=== PATIENT | male | born 1975 | race American Indian/Alaskan Native ===

== ENCOUNTER 2016-05-29 16:15 | Emergency (ER) | payer OTHER ==
[2016-05-29 18:16] LABS: Basophils % (Auto) 0.6 % (0.0-1.8); Eosinophils % (Auto) 2.1 % (0.0-4.3); Hematocrit 47.4 % (35.5-45.6); Hemoglobin 15.6 gm/dl (11.8-15.2); Mean Corpuscular HGB Conc 33 % (32-34); Mean Corpuscular Hemoglobin 30 pg (28-32); Mean Corpuscular Volume 91 fl (84-94); Platelet Count 257 K/mm3 (140-440); Red Blood Count 5.22 M/mm3 (3.65-5.03); Red Cell Distribution Width 13.8 % (13.2-15.2); White Blood Count 9.1 K/mm3 (4.5-11.0)
[2016-05-29 18:20] LABS: Anion Gap 19 mmol/L; Blood Urea Nitrogen 12 mg/dL (9-20); Calcium 9.1 mg/dL (8.4-10.2); Carbon Dioxide 28 mmol/L (22-30); Glucose 99 mg/dL (75-100); Potassium 3.5 mmol/L (3.6-5.0); Sodium 140 mmol/L (137-145)
[2016-05-29] MEDS ORDERED: VALIUM IV ONE (18:44)
[2016-05-29] MEDS ORDERED: REGLAN IV ONE (18:44)
[2016-05-29] MEDS ORDERED: NORMODYNE IV ONE ×2 (18:44→19:52)
[2016-05-29] MEDS ORDERED: BENADRYL IV ONE (18:44)
[2016-05-29] MEDS ORDERED: APRESOLINE IV ONE (18:46)
--- NOTE | 2016-05-29 18:48 | Emergency Department Report ---
HPI - General Chief Complaint: High BP Time Seen by Provider: 05/29/16 18:08 - HPI HPI: The patient is a 40-year-old male with a significant history of uncontrolled hypertension, who presents for evaluation of headache. The patient reports headache for the past 3 days, achy in quality, left frontal in location, 6/10 in severity, exacerbated with bright lights or loud sounds. He states that he is not the worse headache of his life. He states that he has experienced similar headaches in the past with elevations in his blood pressure. The patient denies fever, head injury, neck pain, neck stiffness, vision or hearing changes, smell or taste changes, paresthesias, facial drooping, slurred speech, seizure-like activity, urine or bowel incontinence or retention, or other focal neurological deficit. ED Past Medical Hx - Past Medical History Hx Hypertension: Yes (2012) Hx GERD: Yes Hx Liver Disease: No Hx Renal Disease: No Hx Sickle Cell Disease: No Hx Seizures: No - Surgical History Additional Surgical History: Hastings's tendon repair (09/21) - Social History Smoking Status: Unknown if ever smoked Substance Use Type: None - Medications Home Medications: Home Medications Medication Instructions Recorded Confirmed Last Taken Type Amlodipine Besylate/Benazepril 1 cap PO DAILY #30 capsule 08/30/13 10/02/13 07:20 Rx [Amlodipine-Benazepril 10-20 mg] Hydrochlorothiazide [Hctz] 25 mg PO QDAY #30 tablet 08/30/13 10/02/13 10/02/13 07:20 Rx HYDROcodone/APAP 7.5-325 [[place] 1 each PO Q6HR PRN #25 tablet 09/29/13 10/02/13 09/30/13 Rx 7.5/325 mg] Ibuprofen [Motrin] 600 mg PO Q8H PRN #60 tablet 09/29/13 10/01/13 09/30/13 Rx Oxycodone HCl/Acetaminophen 1 each PO Q6HR PRN #60 tablet 10/02/13 Unknown Rx [Percocet 7.5-325 mg] Ranitidine HCl [Zantac] 300 mg PO QDAY #20 tablet 01/05/14 Unknown Rx Acetaminophen/Codeine [Tylenol #3] 1 tab PO Q6H PRN #12 tab 05/29/16 Unknown Rx Hydrochlorothiazide [Hctz] 25 mg PO QDAY #30 tablet 05/29/16 10/02/13 10/02/13 07:20 Rx Lisinopril [Zestril TAB] 5 mg PO QDAY #31 tablet 05/29/16 Unknown Rx amLODIPine [Norvasc] 5 mg PO DAILY #31 tab 05/29/16 Unknown Rx ED Review of Systems ROS: Stated complaint: HEADACHE Other details as noted in HPI Constitutional: denies: fever ENT: denies: throat or neck pain Respiratory: denies: cough, shortness of breath Cardiovascular: denies: chest pain Endocrine: denies unexplained weight loss or gain Gastrointestinal: denies: abdominal pain, nausea Genitourinary: denies: dysuria Musculoskeletal: denies: leg swelling Skin: denies: rash Neurological: reports headache Hematological/Lymphatic: denies: easy bleeding or easy bruising Psych: denies sadness or hopelessness Physical Exam - Physical Exam Vital Signs: Vital Signs 05/29/16 05/29/16 05/29/16 17:12 17:13 18:22 Temperature 97.8 F 98.4 F Pulse Rate 71 61 52 L Respiratory 20 11 L Rate Blood Pressure 156/90 254/154 O2 Sat by Pulse 100 100 100 Oximetry 05/29/16 05/29/16 18:24 18:29 Temperature Pulse Rate 59 L Respiratory 12 20 Rate Blood Pressure 221/131 O2 Sat by Pulse 99 100 Oximetry Physical Exam: General: well-nourished, well-developed, no acute distress Head: Normocephalic, atraumatic Eyes: normal sclera, PERRL, EOM intact ENT: Mucous membranes are pink and moist Neck: trachea midline, neck supple, No neck stiffness, no cervical adenopathy Respiratory: Breath sounds equal bilaterally, no wheezing, rales, or rhonchi Cardio: S1 and S2 present, no murmurs, rubs, gallops, capillary refill is brisk Abdomen: Normoactive bowel sounds, soft abdomen, no rigidity, no guarding or rebound tenderness Musc: No pitting edema Skin: No rash Neuro: alert oriented x4, normal cognition, speech normal, no facial drooping, no uvula or tongue deviation on protrusion, no deficit with rotation of neck or shoulder shrug, no obvious gross motor deficit in the upper or lower extremities with flexion or extension at the shoulder, elbow, wrist, hip, knee, or ankle bilaterally, no obvious gross sensation deficit, 2+ symmetric reflexes on DTR testing, no coordination deficit with [id number] testing, romberg negative, patient able to to ambulate without abnormal gait Psych: Normal affect ED Course Vital Signs 05/29/16 05/29/16 05/29/16 17:12 17:13 18:22 Temperature 97.8 F 98.4 F Pulse Rate 71 61 52 L Respiratory 20 11 L Rate Blood Pressure 156/90 254/154 O2 Sat by Pulse 100 100 100 Oximetry 05/29/16 05/29/16 18:24 18:29 Temperature Pulse Rate 59 L Respiratory 12 20 Rate Blood Pressure 221/131 O2 Sat by Pulse 99 100 Oximetry ED Medical Decision Making - Lab Data Result diagrams: 05/29/16 17:53 05/29/16 17:49 - Medical Decision Making The patient was seen and examined by myself. The patient is placed on a livestock trucker and continuous pulse ox. On initial evaluation, the patient was found to be in no distress. As there are no neuro deficits or other findings on examination concerning for acute intracranial disease process, and as the patient states that symptoms are consistent with previous headaches, a CAT scan of the head will not be obtained at this time. IV access is established and the patient is given IV Reglan, Benadryl, and IV valium for headache. On reexamination the patient's blood pressure was found to decrease below range concerning for hypertensive emergency. The patient is stable for discharge with outpatient follow-up. The patient is given follow-up and return instructions. The patient expressed understanding and agreed with the plan. The patient is discharged in stable condition. Critical care attestation.: If time is entered above; I have spent that time in minutes in the direct care of this critically ill patient, excluding procedure time. ED Disposition Clinical Impression: Hypertensive urgency Acute nonintractable headache Qualifiers: Headache type: unspecified Qualified Code(s): R51 - Headache Disposition: DISCHARGED TO HOME OR SELFCARE Is pt being admited?: No Does the pt Need Aspirin: No Condition: Stable Instructions: Chronic Hypertension (ED), Acute Headache (ED) Referrals: PRIMARY CARE, [Primary Care Provider] - 3-5 Days Time of Disposition: 18:46
[2016-05-29] MEDS ORDERED: MORPHINE IV ONE (19:50)
[2016-05-29] MEDS ORDERED: NITROSTAT SL ONE (19:50)
[2016-05-29 21:04] VITALS: BP 181/114
--- NOTE | 2016-05-30 08:35 | XRay Report ---
ROUTINE CHEST, TWO VIEWS: HISTORY: Shortness of breath. The trachea, heart, mediastinal contour, lung christian and bony thorax are unremarkable. IMPRESSION: Unremarkable chest x-ray. No significant change since 01/05/14.
== END 2016-05-29 21:19 | disposition home or self-care (01) ==
LOC: ED 16:15
DX: I16.0 Hypertensive urgency (principal); R51 Headache; K21.9 Gastro-esophageal reflux disease without esophagitis
CPT/HCPCS: 36415; 71020; 80048; 84484; 85025; 93005; 93010; 96374; 96375; 99284; J0360; J1200; J2270; J2765; J3360